=== PATIENT | male | born 1950 | race Caucasian/White ===

== ENCOUNTER 2019-06-29 19:42 | Observation (INO) ==
[2019-06-29] MEDS ORDERED: Ondansetron ODT 4 MG TAB.RAPDIS SL PRN (21:51)
[2019-06-29] MEDS ORDERED: Naloxone 0.4 MG/ML INJ IVP PRN (21:51)
[2019-06-29] MEDS ORDERED: Ibuprofen 400 MG TABLET PO PRN (21:51)
[2019-06-29] MEDS ORDERED: *HR* Heparin 5,000 UNIT/ML VIAL IVP PRN ×2 (22:50)
[2019-06-29] MEDS ORDERED: *HR* Heparin 5,000 UNIT/ML VIAL IVP ONE (22:50)
[2019-06-29] MEDS ORDERED: *HR* Dextrose 50 % in Water (Syg) 50 ML SYRINGE IVP PRN (23:33)
[2019-06-29] MEDS ORDERED: Dextrose Gel 15 GM/37.5 ML TUBE PO PRN ×2 (23:33)
[2019-06-29] MEDS ORDERED: D5% in Water 1,000 ML IVC PRN (23:33)
[2019-06-29] MEDS ORDERED: *HR* OxyCODONE/APAP 5/325 TABLET PO PRN (23:34)
[2019-06-30] MEDS: Heparin 25,000 UNIT/250 ML D5W 25,000 UNIT/250 ML IV.SOLN IVC SCH (00:26)
[2019-06-30 00:33] LABS: Basophils % 0.5 %; Eosinophils % 0.7 %; Hematocrit 39.6 % (37.5-50.1); Hemoglobin 12.7 g/dL (12.9-16.9); Immature Granulocytes % 0.5 % (0-4); Lymphocytes # 1.6 K/mcL (0.6-4.6); Lymphocytes % 27.6 %; Mean Corpuscular HGB Conc 32.1 g/dL (31.6-35.5); Mean Corpuscular Hemoglobin 27.3 pg (28.0-33.3); Mean Platelet Volume 10.7 fL (9.4-12.4); Monocytes # 1.1 K/mcL (0.0-1.3); Monocytes % 19.4 %; Platelet Count 197 K/mcL (140-400); Red Blood Count 4.66 M/mcL (4.19-5.50); Red Cell Distribution Width 17.8 % (11.5-14.5); Segmented Neutrophils % 51.3 %; White Blood Count 5.8 K/mcL (4.3-11.1)
[2019-06-30 00:35] LABS: INR 1.7; Prothrombin Time 19.8 Seconds (9.4-12.1)
[2019-06-30 00:43] LABS: Alanine Aminotransferase 65 Units/L (7-52); Albumin 2.8 g/dL (3.5-5.7); Albumin/Globulin Ratio 1.2 (1.1-2.2); Alkaline Phosphatase 796 Units/L (34-104); Aspartate Amino Transferase 90 Units/L (13-39); BUN/Creatinine Ratio 29 (6-26); Bilirubin,Total 7.2 mg/dL (0.3-1.0); Blood Urea Nitrogen 22 mg/dL (8-23); Calcium 8.1 mg/dL (8.6-10.3); Carbon Dioxide 25 mEq/L (23-29); Chloride 99 mEq/L (98-107); Globulin 2.4 g/dL (2.4-3.5); Glucose 183 mg/dL (70-105); Magnesium 2.1 mg/dL (1.6-2.6); Osmolality,Calculated 286 (280-300); Phosphorous 3.3 mg/dL (2.7-4.5); Potassium 4.3 mEq/L (3.5-5.1); Sodium 134 mEq/L (136-145); Total Protein 5.2 g/dL (6.4-8.9); eGFR For African Americans > 60 (> 60); eGFR For Non-African Americans > 60 (> 60)
[2019-06-30] MEDS: Insulin LISPRO 300 UNITS/3 ML VIAL SQ SCH ×4 (00:46→17:49)
[2019-06-30] MEDS: Insulin DETEMIR 100 UNIT/ML X5UNITS SQ SCH ×2 (01:23→20:53)
[2019-06-30] MEDS ORDERED: *HR* OxyCODONE Immed Rel 5 MG TABLET PO PRN (13:55)
[2019-06-30] MEDS: Sennosides/Docusate Sodium TABLET PO SCH (20:53)
[2019-06-30] MEDS ORDERED: Mirtazapine 15 MG TABLET PO SCH (21:00)
[2019-07-01] MEDS: Insulin LISPRO 300 UNITS/3 ML VIAL SQ SCH ×3 (01:31→11:57)
[2019-07-01] MEDS: Heparin 25,000 UNIT/250 ML D5W 25,000 UNIT/250 ML IV.SOLN IVC SCH (02:32)
[2019-07-01 04:53] LABS: Prothrombin Time 22.8 Seconds (9.4-12.1)
[2019-07-01 05:05] LABS: Alanine Aminotransferase 71 Units/L (7-52); Albumin 2.8 g/dL (3.5-5.7); Albumin/Globulin Ratio 1.2 (1.1-2.2); Alkaline Phosphatase 808 Units/L (34-104); Aspartate Amino Transferase 111 Units/L (13-39); BUN/Creatinine Ratio 25 (6-26); Bilirubin,Total 8.4 mg/dL (0.3-1.0); Blood Urea Nitrogen 19 mg/dL (8-23); Calcium 7.9 mg/dL (8.6-10.3); Carbon Dioxide 26 mEq/L (23-29); Chloride 98 mEq/L (98-107); Globulin 2.4 g/dL (2.4-3.5); Glucose 76 mg/dL (70-105); Osmolality,Calculated 277 (280-300); Sodium 133 mEq/L (136-145); Total Protein 5.2 g/dL (6.4-8.9); eGFR For African Americans > 60 (> 60); eGFR For Non-African Americans > 60 (> 60)
[2019-07-01 05:06] LABS: BUN/Creatinine Ratio 26 (6-26); Blood Urea Nitrogen 20 mg/dL (8-23); Calcium 7.9 mg/dL (8.6-10.3); Carbon Dioxide 24 mEq/L (23-29); Chloride 98 mEq/L (98-107); Glucose 75 mg/dL (70-105); Osmolality,Calculated 275 (280-300); Potassium 4.1 mEq/L (3.5-5.1); Sodium 132 mEq/L (136-145); eGFR For African Americans > 60 (> 60); eGFR For Non-African Americans > 60 (> 60)
[2019-07-01] MEDS: Sennosides/Docusate Sodium TABLET PO SCH (07:41)
[2019-07-01] MEDS ORDERED: Metoprolol XL (24 HR) Succ 50 MG TAB.ER.24H PO SCH (09:00)
[2019-07-01] MEDS ORDERED: 0.9 % Sodium Chloride 500 ML ONE (09:09)
[2019-07-01 11:16] VITALS: BP 125/80
[2019-07-01] MEDS ORDERED: *HR* Rivaroxaban 15 MG TABLET PO SCH (11:30)
== END 2019-07-01 12:43 | disposition hospice, home (50) ==
LOC: 3ANU → SUATTDRO 21:17
PROVIDERS: ADMIT Internal Medicine; ATTEND Internal Medicine